=== PATIENT | female | born 1985 | race Caucasian/White ===

== ENCOUNTER 2023-09-02 20:05 | Emergency (ER) | payer MEDICAID ==
[~2023-09-02] VITALS: Ht 165.1 cm; Wt 93.0 kg
[2023-09-02 20:52] VITALS: BP 119/72; PULSE 115; RESP 18; TEMP 100.8; O2SAT 97
[2023-09-02 21:44] LABS: BASOPHILS % 0.2 % (0.0-2.0); EOSINOPHILS % 0.3 % (0.0-5.0); HEMATOCRIT. 35.9 % (36.0-48.0); HEMOGLOBIN. 12.3 g/dL (12.0-16.0); LYMPHOCYTES % 12.4 % (20.0-50.0); MEAN CORPUSCULAR HEMOGLOBIN 31.2 pg (28.0-32.0); MEAN CORPUSCULAR HGB CONC 34.4 g/dL (31.0-37.0); MEAN CORPUSCULAR VOLUME 90.5 fL (81.0-99.0); MEAN PLATELET VOLUME 8.7 fl (7.4-10.4); MONOCYTES % 10.8 % (2.0-8.0); NEUTROPHILS % 76.3 % (40.0-76.0); PLATELET 246 x1000/uL (130-400); RED BLOOD CELL COUNT 3.96 mill/uL (4.2-5.4); RED CELL DISTRIBUTION WIDTH 13.2 % (11.6-14.6); WHITE BLOOD COUNT 13.9 x1000/uL (4.5-11.0)
[2023-09-02 22:07] LABS: ALANINE AMINOTRANSFERASE 16 IU/L (10-49); ALBUMIN 3.9 g/dL (3.2-4.8); ASPARTATE AMINOTRANSFERASE 16 IU/L (<34); BILIRUBIN TOTAL 0.4 mg/dL (0.1-1.0); CALCIUM 8.8 mg/dL (8.7-10.4); CARBON DIOXIDE 26 mEq/L (21-32); CHLORIDE 103 mEq/L (98-107); CREATININE 0.8 mg/dL (0.6-1.0); GLUCOSE 127 mg/dL (70-105); POTASSIUM 3.6 mEq/L (3.5-5.1); PROTEIN TOTAL 6.7 g/dL (6.0-8.3); SODIUM 136 mEq/L (136-145); UREA NITROGEN BLOOD 7 mg/dL (9-23)
[2023-09-02 22:27] LABS: CLARITY URINE CLEAR (CLEAR); COLOR URINE YELLOW (YELLOW); GLUCOSE URINE NEGATIVE (NEGATIVE); KETONES URINE NEGATIVE (NEGATIVE); LEUKOCYTE ESTERASE URINE 1+ (NEGATIVE); NITRITE URINE NEGATIVE (NEGATIVE); OCCULT BLOOD URINE 1+ (NEGATIVE); PH URINE 6.5 (4.5-8.0); PROTEIN URINE NEGATIVE (NEGATIVE); SPECIFIC GRAVITY URINE 1.008 (1.005-1.030); UROBILINOGEN URINE 0.2 E.U./dL (0.2-1.0)
[2023-09-02 22:48] LABS: SQUAMOUS EPITHELIAL CELL URINE 1+ /lpf (RARE/1+)
[2023-09-02 22:49] LABS: BACTERIA URINE 2+
[2023-09-02 23:00] LABS: HCG SCREEN NEGATIVE
[2023-09-03] MEDS ORDERED: CEFTRIAXONE 1GM PREMIX 50 ML IV ONE
[2023-09-03] MEDS ORDERED: CEFP200T13 MT (01:40)
[2023-09-03] MEDS ORDERED: SODIUM CHLORIDE 0.9% 500 ML IV ONE (01:45)
[2023-09-03] MEDS ORDERED: IBUPROFEN 400MG TABLET PO NR (03:00)
[2023-09-03] MEDS ORDERED: IBUPROFEN 800MG TABLET PO ONE (03:00)
== END 2023-09-03 02:51 | disposition home or self-care (01) ==
LOC: ER 20:05
DX: N12 Tubulo-interstitial nephritis, not specified as acute or chronic (principal); Z90.49 Acquired absence of other specified parts of digestive tract; Z20.822 Contact with and (suspected) exposure to COVID-19
CPT/HCPCS: 99284; 74176; 87426; 80053; 81003; 84703; 83690; 85025; 87086; 87186; 87804 ×2; 87077; 36415; 96360; C9803; J0696; J7040

== ENCOUNTER 2025-01-04 21:01 | Emergency (ER) | payer MEDICAID, OTHER ==
[~2025-01-04] VITALS: Ht 160 cm; Wt 93.0 kg
[~2025-01-04 21:01] MED LIST: CEFP200T13 MT
[2025-01-04 21:20] VITALS: TEMP 36.7; O2SAT 100
[2025-01-04 22:12] LABS: GLUCOSE URINE NEGATIVE (NEGATIVE); KETONES URINE NEGATIVE (NEGATIVE)
[2025-01-04 22:21] LABS: CLARITY URINE CLEAR (CLEAR); COLOR URINE OTHER (YELLOW); NITRITE URINE NEGATIVE (NEGATIVE); OCCULT BLOOD URINE 3+ (NEGATIVE); PH URINE 6.5 (4.5-8.0); PROTEIN URINE NEGATIVE (NEGATIVE); SPECIFIC GRAVITY URINE 1.002 (1.005-1.030)
[2025-01-04 22:22] LABS: *AMPHETAMINES SCREEN URINE NEGATIVE (NEGATIVE); LEUKOCYTE ESTERASE URINE 2+ (NEGATIVE); UROBILINOGEN URINE 0.2 E.U./dL (0.2-1.0)
[2025-01-04 22:23] LABS: *BARBITURATES SCREEN URINE NEGATIVE (NEGATIVE); *BENZODIAZEPINES SCREEN URINE NEGATIVE (NEGATIVE); *COCAINE SCREEN URINE NEGATIVE (NEGATIVE); CANNABINOID URINE SCREEN NEGATIVE (NEGATIVE); ECSTASY MDMA SCREEN URINE NEGATIVE (NEGATIVE); METHADONE URINE SCREEN NEGATIVE (NEGATIVE); OPIATES URINE SCREEN NEGATIVE (NEGATIVE); PHENCYCLIDINE URINE SCREEN NEGATIVE (NEGATIVE)
[2025-01-04 22:32] LABS: BACTERIA URINE NONE SEEN; SQUAMOUS EPITHELIAL CELL URINE FEW /lpf (RARE/1+)
[2025-01-04 22:33] LABS: BASOPHILS % 0.8 % (0.0-2.0); EOSINOPHILS % 1.3 % (0.0-5.0); HEMATOCRIT. 39.1 % (36.0-48.0); HEMOGLOBIN. 13.2 g/dL (12.0-16.0); LYMPHOCYTES % 35.5 % (20.0-50.0); MEAN CORPUSCULAR HEMOGLOBIN 31.1 pg (28.0-32.0); MEAN CORPUSCULAR HGB CONC 33.8 g/dL (31.0-37.0); MEAN PLATELET VOLUME 9.1 fl (7.4-10.4); MONOCYTES % 6.9 % (2.0-8.0); NEUTROPHILS % 55.5 % (40.0-76.0); PLATELET 261 x1000/uL (130-400); RED BLOOD CELL COUNT 4.25 mill/uL (4.2-5.4); RED CELL DISTRIBUTION WIDTH 13.3 % (11.6-14.6); WHITE BLOOD COUNT 7.3 x1000/uL (4.5-11.0)
[2025-01-04 22:42] LABS: PROTHROMBIN TIME 10.5 sec (9.6-11.0)
[2025-01-04 22:43] LABS: CHLORIDE 107 mEq/L (98-107); POTASSIUM 3.9 mEq/L (3.5-5.1); SODIUM 140 mEq/L (136-145)
[2025-01-04 22:44] LABS: CALCIUM 9.3 mg/dL (8.7-10.4); CARBON DIOXIDE 26 mEq/L (21-32); HCG SCREEN NEGATIVE
[2025-01-04 22:49] LABS: CREATININE 0.9 mg/dL (0.6-1.0); GLUCOSE 92 mg/dL (70-105); UREA NITROGEN BLOOD 10 mg/dL (9-23)
[2025-01-04 22:54] LABS: THYROID STIMULATING HORMONE 0.78 uIU/mL (0.55-4.78)
[2025-01-04 22:58] LABS: TROPONIN I HIGH SENSITIVITY < 4 ng/L (3.0-34)
[2025-01-05] MEDS ORDERED: AMLO5TAB88 MT (00:37)
[2025-01-05] MEDS ORDERED: AMLODIPINE 5MG TABLET PO ONE (00:45)
[2025-01-05] MEDS ORDERED: AMLO2.5T45 MT (00:58)
[2025-01-05] MEDS: IBUPROFEN 400MG TABLET PO ONE (00:59)
[2025-01-05 01:01] VITALS: BP 128/90; PULSE 76; RESP 16; O2SAT 100
== END 2025-01-05 01:02 | disposition home or self-care (01) ==
LOC: ER 21:01
DX: I10 Essential (primary) hypertension (principal); Z98.890 Other specified postprocedural states; Z90.49 Acquired absence of other specified parts of digestive tract
CPT/HCPCS: 36415; 71045; 80048; 80305; 81003; 83880; 84439; 84443; 84484; 84703; 85025; 93005; 99285

== ENCOUNTER 2025-03-14 13:10 | Emergency (ER) | payer OTHER ==
[~2025-03-14] VITALS: Ht 160 cm; Wt 92.0 kg
[~2025-03-14 13:10] MED LIST changes: +AMLO2.5T45 MT
[2025-03-14 13:20] VITALS: TEMP 36.9; O2SAT 100
[2025-03-14] MEDS ORDERED: CELE100C MT (14:56)
[2025-03-14 15:46] VITALS: BP 142/86; PULSE 73; RESP 16; O2SAT 100
== END 2025-03-14 16:02 | disposition home or self-care (01) ==
LOC: ER 13:10
DX: S66.911A Strain of unspecified muscle, fascia and tendon at wrist and hand level, right hand, initial encounter (principal); I10 Essential (primary) hypertension; Z79.1 Long term (current) use of non-steroidal anti-inflammatories (NSAID); Z90.49 Acquired absence of other specified parts of digestive tract; X58.XXXA Exposure to other specified factors, initial encounter; Y93.89 Activity, other specified; Y92.89 Other specified places as the place of occurrence of the external cause; Y99.8 Other external cause status
CPT/HCPCS: 99284; 73110; 73120; 29125; A6449

== ENCOUNTER 2025-08-05 09:23 | Emergency (ER) | payer OTHER ==
[~2025-08-05] VITALS: Ht 170.2 cm; Wt 80.0 kg
[~2025-08-05 09:23] MED LIST changes: +CELE100C MT
[2025-08-05 09:31] VITALS: O2SAT 99
[2025-08-05] MEDS: TETANUS, DIPHTHERIA, PERTUSSIS VAC/PF 0.5ML (>10YR OLD) IM ONE (10:51)
[2025-08-05] MEDS: ACETAMINOPHEN 325MG TABLET PO ONE (10:52)
[2025-08-05 12:58] VITALS: BP 134/95; PULSE 69; RESP 18; TEMP 36.8; O2SAT 100
== END 2025-08-05 13:00 | disposition home or self-care (01) ==
LOC: ER 09:55
DX: S00.93XA Contusion of unspecified part of head, initial encounter (principal); S20.219A Contusion of unspecified front wall of thorax, initial encounter; M25.511 Pain in right shoulder; I10 Essential (primary) hypertension; Z90.49 Acquired absence of other specified parts of digestive tract; V19.9XXA Pedal cyclist (driver) (passenger) injured in unspecified traffic accident, initial encounter; Y93.01 Activity, walking, marching and hiking; Y92.89 Other specified places as the place of occurrence of the external cause; Y99.8 Other external cause status
CPT/HCPCS: 71045; 73030; 81025; 90471; 90715; 99285